=== PATIENT | female | born 1955 | race Caucasian/White ===

== ENCOUNTER 2018-04-05 11:16 | Observation (INO) ==
[2018-04-05] MEDS ORDERED: Ipratropium/Albuterol Neb 3 ML IH ONE (11:19)
[2018-04-05] MEDS ORDERED: predniSONE 20 MG TABLET PO ONE (11:20)
--- NOTE | 2018-04-05 11:27 | Emergency Department Note ---
Disposition Clinical Impression: Cardiac enzymes elevated COPD (chronic obstructive pulmonary disease) Qualifiers: COPD type: unspecified COPD Qualified Code(s): J44.9 - Chronic obstructive pulmonary disease, unspecified Disposition: Admitted As Inpatient Condition: Good Time of Disposition: 13:11 SOB HPI - General Stated Complaint: COPD SOB Time Seen by Provider: 04/05/18 11:19 Source: patient, EMS Mode of arrival: EMS Limitations: no limitations Nursing Notes Reviewed: Yes Vital Signs Reviewed: Yes - History of Present Illness 62-year-old was loading a table into car and developed some shortness of breath. Patient does have a history of asthma and COPD. Who is on squad arrival patient's pulse ox was in the 90-94 range. The patient's symptoms have improved significantly. Pt Subjective Complaint: shortness of breath, cough Onset (ago): Just [employer] Severity: moderate Consistency/Duration: constant, now resolved Improves with: nothing Worsens with: nothing Known history of: COPD, asthma Associated symptoms: Reports: denies other symptoms Treatment prior to arrival: oxygen Cough present: No - Related Data Home Medications Medication Instructions Recorded Confirmed Albuterol Sulfate [Proventil Hfa] 2 puff IH Q4H PRN 12/23/16 04/05/18 Citalopram Hydrobromide 40 mg PO DAILY 12/23/16 04/05/18 [Citalopram HBr] Lisinopril [Zestril] 40 mg PO DAILY 12/23/16 04/05/18 Budesonide/Formoterol 80/4.5 2 gm IH BIDR 02/11/17 04/05/18 [Symbicort 80/4.5] Albuterol Neb [Proventil Neb] 2.5 mg IH TID 04/05/18 04/05/18 Atorvastatin [Lipitor] 10 mg PO HS 04/05/18 04/05/18 Meloxicam [Mobic] 15 mg PO DAILY 04/05/18 04/05/18 Metoprolol [Lopressor] 25 mg PO BID 04/05/18 04/05/18 Allergies Allergy/AdvReac Type Severity Reaction Status Date / Time Oxycodone [From Percocet] AdvReac Nausea Verified 05/03/17 18:10 All systems ED: reviewed and negative except as stated. Constitutional: Denies: fever, chills, weakness, weight change Eyes: Denies: eye pain, eye discharge, vision change ENT ED: Denies: ear pain, throat pain, dental pain, hearing loss, epistaxis, congestion, dysphagia Cardiovascular: Denies: chest pain, palpitations, dyspnea on exertion, edema, syncope Respiratory: Reports: dyspnea, wheezes. Denies: cough, hemoptysis, stridor Gastrointestinal: Denies: abdominal pain, nausea, vomiting, diarrhea, constipation, hematemesis, melena, hematochezia Genitourinary: Denies: dysuria, frequency, hematuria, discharge Musculoskeletal: Denies: back pain, neck pain, arthralgia, myalgia Integumentary: Denies: rash, abrasion, lesions Neurological: Denies: headache, weakness, numbness, paresthesias, confusion, abnormal gait, vertigo Psychiatric: Denies: anxiety, depression, suicidal thoughts, homicidal thoughts , auditory hallucinations, visual hallucinations Endocrine: Denies: fatigue Hematological/Lymphatic: Denies: easy bleeding, easy bruising Allergic/Immunologic: Denies: facial swelling, urticaria Past Medical History - Past Medical History Medical history: Reports: COPD, hyperlipidemia, hypertension Surgical history: Reports: cataract, cholecystectomy, hysterectomy Psychiatric history: Reports: depression GRAIN SCOOPER history: Reports: no GRAIN SCOOPER history - Social History Smoking Status: Current every day smoker Smokeless Tobacco Status: No Alcohol use: Reports: none Drug use: Reports: none Physical Exam - General Limitations: no limitations General appearance: alert, in no apparent distress - Head Head exam: atraumatic, normocephalic, normal inspection - Eye Eye exam: Present: normal appearance, PERRL, EOMI - ENT ENT exam: normal exam, normal oropharynx, mucous membranes moist - Neck Neck exam: Present: normal inspection, full ROM, trachea midline - Chest Chest inspection: Present: normal inspection, symmetric chest wall rise - Respiratory Respiratory exam: Present: normal lung sounds bilaterally - Cardiovascular Cardiovascular exam: Present: regular rate, normal rhythm, normal heart sounds - Abdominal Exam Abdominal exam: Present: soft, Non-Tender. Absent: tenderness, distention, guarding, rebound, rigidity - Extremities Exam Extremities exam: Present: normal inspection, full ROM. Absent: tenderness, pedal edema - Expanded Lower Extremity Exam Neurovascular/Tendon exam: Absent: motor deficit, sensory deficit, tendon deficit Gait: observed and normal - Back Exam Back exam: Present: normal inspection, full ROM. Absent: tenderness - Neurological Exam Neurological exam: Present: alert, oriented X3 - Psychiatric Psychiatric exam: Present: normal affect, normal mood - Skin Skin exam: Present: warm, dry, intact, normal color Course - Reevaluation(s) Reevaluation #1: 62-year-old who developed dyspnea and some tightness in her chest wall loading a table. EKG showed no acute change but she did have positive cardiac enzymes. Consultation obtained with cardiology. Time: 13:12 - Consultations Consultation #1: Discussed with Dr. Diaz, admit. Time: 13:05 Consultation #2: Discussed with Dr. Lopez, would not start heparin now as the patient is asymptomatic. Would trend troponins. We will see in consult. Time: 13:10 Vital Signs Temperature 98.5 F 04/05/18 11:18 Pulse Rate 88 04/05/18 11:18 Respiratory Rate 19 04/05/18 11:18 Blood Pressure 142/89 04/05/18 11:18 O2 Sat by Pulse Oximetry 94 04/05/18 11:18 Temperature 97.8 F 04/05/18 17:40 Pulse Rate 73 04/05/18 17:40 Respiratory Rate 16 04/05/18 17:40 Blood Pressure 154/87 04/05/18 17:40 O2 Sat by Pulse Oximetry 94 04/05/18 17:40 Oxygen Delivery Oxygen Delivery Room Air Shortness of Breath/Dyspnea - Lab Data Lab results reviewed: Yes I reviewed the patient's lab results. Result diagrams: 04/05/18 11:31 04/05/18 11:31 Lab Results 04/05/18 04/05/18 04/05/18 Range/Units 11:31 11:31 11:31 WBC 7.2 (4.3-11.1) K/mcL RBC 4.64 (3.82-4.97) M/mcL Hgb 14.0 (11.5-15.4) g/dL Hct 41.3 (35.3-44.9) % MCV 89.0 (83.0-100.0) fL MCH 30.2 (28.0-33.3) pg MCHC 33.9 (31.6-35.5) g/dL RDW 12.8 (11.5-14.5) % Plt Count 220 (140-400) K/mcL MPV 11.6 (9.4-12.4) fL Immature Gran % 0.4 (0-4) % Seg Neutrophils % 63.5 % Lymphocytes % 24.9 % Monocytes % 8.9 % Eosinophils % 1.2 % Basophils % 1.1 % Neutrophils # 4.6 (1.6-8.9) K/mcL Lymphocytes # 1.8 (0.6-4.6) K/mcL Monocytes # 0.6 (0.0-1.3) K/mcL Eosinophils # 0.1 (0.0-0.6) K/mcL Basophils # 0.1 (0.0-0.2) K/mcL D-Dimer (0-500) ng/mLFEU Sodium 137 (136-145) mEq/L Potassium 3.7 (3.5-5.1) mEq/L Chloride 104 (98-107) mEq/L Carbon Dioxide 25 (23-29) mEq/L BUN 12 (8-23) mg/dL Creatinine 0.73 (0.60-1.20) mg/dL Est GFR ( Amer) > 60 (> 60) Est GFR (Non-Af Amer) > 60 (> 60) BUN/Creatinine Ratio 16 (6-26) Glucose 113 H (70-105) mg/dL Calculated Osmolality 285 (280-300) Lactic Acid 1.8 (0.5-2.2) mmol/L Calcium 8.6 (8.6-10.3) mg/dL Troponin I 0.07 H* (< 0.04) ng/mL B-Natriuretic Peptide (Less than 100) pg/mL 04/05/18 04/05/18 Range/Units 11:31 11:31 WBC (4.3-11.1) K/mcL RBC (3.82-4.97) M/mcL Hgb (11.5-15.4) g/dL Hct (35.3-44.9) % MCV (83.0-100.0) fL MCH (28.0-33.3) pg MCHC (31.6-35.5) g/dL RDW (11.5-14.5) % Plt Count (140-400) K/mcL MPV (9.4-12.4) fL Immature Gran % (0-4) % Seg Neutrophils % % Lymphocytes % % Monocytes % % Eosinophils % % Basophils % % Neutrophils # (1.6-8.9) K/mcL Lymphocytes # (0.6-4.6) K/mcL Monocytes # (0.0-1.3) K/mcL Eosinophils # (0.0-0.6) K/mcL Basophils # (0.0-0.2) K/mcL D-Dimer 535 H (0-500) ng/mLFEU Sodium (136-145) mEq/L Potassium (3.5-5.1) mEq/L Chloride (98-107) mEq/L Carbon Dioxide (23-29) mEq/L BUN (8-23) mg/dL Creatinine (0.60-1.20) mg/dL Est GFR ( Amer) (> 60) Est GFR (Non-Af Amer) (> 60) BUN/Creatinine Ratio (6-26) Glucose (70-105) mg/dL Calculated Osmolality (280-300) Lactic Acid (0.5-2.2) mmol/L Calcium (8.6-10.3) mg/dL Troponin I (< 0.04) ng/mL B-Natriuretic Peptide 150 H (Less than 100) pg/mL - Radiology Data Radiology results reviewed: Yes I reviewed the patient's radiology results. Chest X-Ray 04/05/18 11:19 IMPRESSION: Bibasilar atelectasis. D/ / Mg Ledbetter MD / Mg Ledbetter MD Interpreting Provider: Mg Ledbetter MD - EKG Data EKG attestation: Yes I reviewed and interpreted this EKG. EKG shows normal: Reports: sinus rhythm Rate: Reports: normal Rhythm: Reports: NSR [place]/QRS: Reports: normal Interpretation: Reports: no acute changes
[2018-04-05 11:49] LABS: Basophils # 0.1 K/mcL (0.0-0.2); Basophils % 1.1 %; Eosinophils # 0.1 K/mcL (0.0-0.6); Eosinophils % 1.2 %; Hematocrit 41.3 % (35.3-44.9); Immature Granulocytes % 0.4 % (0-4); Lymphocytes # 1.8 K/mcL (0.6-4.6); Lymphocytes % 24.9 %; Mean Corpuscular HGB Conc 33.9 g/dL (31.6-35.5); Mean Corpuscular Hemoglobin 30.2 pg (28.0-33.3); Mean Platelet Volume 11.6 fL (9.4-12.4); Monocytes # 0.6 K/mcL (0.0-1.3); Monocytes % 8.9 %; Neutrophils # 4.6 K/mcL (1.6-8.9); Platelet Count 220 K/mcL (140-400); Red Blood Count 4.64 M/mcL (3.82-4.97); Red Cell Distribution Width 12.8 % (11.5-14.5); Segmented Neutrophils % 63.5 %
[2018-04-05 12:11] LABS: BUN/Creatinine Ratio 16 (6-26); Blood Urea Nitrogen 12 mg/dL (8-23); Calcium 8.6 mg/dL (8.6-10.3); Carbon Dioxide 25 mEq/L (23-29); Chloride 104 mEq/L (98-107); Glucose 113 mg/dL (70-105); Osmolality,Calculated 285 (280-300); Potassium 3.7 mEq/L (3.5-5.1); Sodium 137 mEq/L (136-145); eGFR For African Americans > 60 (> 60); eGFR For Non-African Americans > 60 (> 60)
[2018-04-05 12:16] LABS: Troponin I 0.07 ng/mL (< 0.04)
--- NOTE | 2018-04-05 13:22 | Internal Med History&Physical ---
Date of Encounter: 04/05/18 Time of Encounter: 13:20 Internal Medicine - H&P: HPI Chief complaint: CHEST PAIN Admitted From: Emergency Dept Plans for Post Hospital Care: Home History of present illness: Ms. Nunes is a 62 year old female Patient with history of COPD, hypertension, high cholesterol, obesity and smoking history patient today was LAODING a table into a car she developed acute shortness of breath and broke out in profuse sweat has some epigastric discomfort going up to her chest and that she called EMS and brought to the emergency room . her symptoms has now resolve EKG is unremarkable troponin 0.07 patient will be admitted for further Evaluation ER has placed called to cardiology for consultation exam is unremarkable no prior cardiac event history. Past Med Surg Social Fam HX - Past Medical History Medical history: COPD, hyperlipidemia, hypertension Psychiatric history: depression - Past Surgical History Surgical History: cataract, cholecystectomy, hysterectomy Additional surgical history: bilat cataracts,colonoscopy,lasik - Social History Smoking Status: Current every day smoker Smokeless Tobacco Status: No Alcohol use: none Drug use: none Internal Medicine - H&P: Meds Albuterol Sulfate [Proventil Hfa] 2 puff IH Q4H PRN 12/23/16 [History] Citalopram Hydrobromide [Citalopram HBr] 40 mg PO DAILY 12/23/16 [History] Lisinopril [Zestril] 40 mg PO DAILY 12/23/16 [History] Budesonide/Formoterol 80/4.5 [Symbicort 80/4.5] 2 gm IH BIDR 02/11/17 [History] Albuterol Neb [Proventil Neb] 2.5 mg IH TID 04/05/18 [History] Atorvastatin [Lipitor] 10 mg PO HS 04/05/18 [History] Meloxicam [Mobic] 15 mg PO DAILY 04/05/18 [History] Metoprolol [Lopressor] 25 mg PO BID 04/05/18 [History] 3 Allergy/AdvReac Type Severity Reaction Status Date / Time Oxycodone [From Percocet] AdvReac Nausea Verified 05/03/17 18:10 All Systems PM: A 10-system review of systems was performed and is negative for pertinent findings except as documented above in the HPI. - Constitutional Constitutional: no chills, no fever(s), no night sweats - EENT Eyes: no change in vision, no discharge, no pain, no photophobia Ears: no ear discharge, no ear pain, no tinnitus Nose, mouth and throat: no dysphagia, no nasal discharge, no neck pain, no sore throat - Cardiovascular Cardiovascular ROS IM: chest pain, diaphoresis, dyspnea - Respiratory Respiratory: dyspnea, dyspnea on exertion - Gastrointestinal Gastrointestinal: no abdominal pain, no diarrhea, no hematemesis, no hematochezia, no melena, no nausea, no vomiting - Genitourinary Genitourinary: no change in urinary stream, no dysuria, no flank pain, no hematuria - Musculoskeletal Musculoskeletal ROS IM: no numbness, no tingling - Integumentary Integumentary IM: no rash, no unusual bruising - Neurological Neurological ROS: no confusion, no convulsions, no focal weakness, no numbness, no tingling, no tremor(s) - Constitutional Vitals: Temp Pulse Resp BP Pulse Ox 98.5 F 71 19 150/93 98 04/05/18 11:18 04/05/18 12:57 04/05/18 12:57 04/05/18 12:57 04/05/18 12:57 Internal Med - H&P Results - Labs CBC & Chem 7: 04/05/18 11:31 04/05/18 11:31 Labs: Short CBC 04/05/18 Range/Units 11:31 WBC 7.2 (4.3-11.1) K/mcL Hgb 14.0 (11.5-15.4) g/dL Hct 41.3 (35.3-44.9) % Plt Count 220 (140-400) K/mcL Neutrophils # 4.6 (1.6-8.9) K/mcL BMP 04/05/18 11:31 Sodium 137 Potassium 3.7 Chloride 104 Carbon Dioxide 25 BUN 12 Creatinine 0.73 Glucose 113 H Calcium 8.6 Cardiac Enzymes 04/05/18 Range/Units 11:31 Troponin I 0.07 H* (< 0.04) ng/mL - Impressions ITS Impressions Chest X-Ray 04/05/18 11:19 IMPRESSION: Bibasilar atelectasis. D/ / Mg Ledbetter MD / Mg Ledbetter MD Interpreting Provider: Mg Ledbetter MD - Assessment and plan (1) Chest pain Current Visit: Yes Status: Acute Assessment and plan: Acute chest pain with positive troponin 0.07 concern for possible non-STEMI will trend troponin and consult cardiology Qualifiers: Chest pain type: precordial pain Qualified Code(s): R07.2 - Precordial pain (2) HTN (hypertension) Current Visit: Yes Status: Chronic Assessment and plan: Chronic and well controlled Qualifiers: Hypertension type: essential hypertension Qualified Code(s): I10 - Essential (primary) hypertension (3) Obesity Current Visit: Yes Status: Chronic Qualifiers: Obesity type: due to excess calories Obesity classification: unspecified obesity classification Serious obesity comorbidity presence: unspecified whether serious comorbidity present Qualified Code(s): E66.09 - Other obesity due to excess calories (4) Hyperlipidemia Current Visit: Yes Status: Chronic Qualifiers: Hyperlipidemia type: pure hypercholesterolemia Qualified Code(s): E78.00 - Pure hypercholesterolemia, unspecified; E78.0 - Pure hypercholesterolemia (5) COPD (chronic obstructive pulmonary disease) Current Visit: Yes Status: Chronic Assessment and plan: Chronic no active wheezing on exam Qualifiers: COPD type: unspecified COPD Qualified Code(s): J44.9 - Chronic obstructive pulmonary disease, unspecified (6) Cardiac enzymes elevated Current Visit: Yes Status: Acute Assessment and plan: will trend - Time Spent With Patient Total time spent is greater than 50% in coordination of care (as documented) at patient's floor/unit and/or counseling patient:
[2018-04-05] MEDS ORDERED: Naloxone 0.4 MG/ML INJ IVP PRN (13:26)
[2018-04-05] MEDS ORDERED: Acetaminophen 325 MG TABLET PO PRN (13:26)
[2018-04-05] MEDS ORDERED: traMADol 50 MG TABLET PO PRN (13:26)
[2018-04-05] MEDS: Albuterol 2.5 MG/3 ML NEBULIZER IH SCH ×3 (14:52→22:43)
[2018-04-05] MEDS ORDERED: *HR* Heparin 5,000 UNIT/ML VIAL IVP PRN ×2 (19:14)
[2018-04-05] MEDS ORDERED: *HR* Heparin 5,000 UNIT/ML VIAL IVP ONE (19:14)
[2018-04-05] MEDS ORDERED: Heparin 25,000 UNIT/500 ML D5W 25,000 UNIT/500 ML BAG IVC SCH (19:15)
[2018-04-05 19:56] LABS: Prothrombin Time 10.9 Seconds (9.4-12.1)
[2018-04-05 19:58] LABS: Activated Partial Thrombo Time 30.4 Seconds (26.0-36.0)
[2018-04-05 20:04] LABS: Hematocrit 41.1 % (35.3-44.9); Hemoglobin 14.4 g/dL (11.5-15.4); Immature Platelets 9.8 % (1.1-6.1); Mean Corpuscular Volume 88.4 fL (83.0-100.0); Mean Platelet Volume 11.5 fL (9.4-12.4); Red Blood Count 4.65 M/mcL (3.82-4.97); Red Cell Distribution Width 12.7 % (11.5-14.5)
[2018-04-05] MEDS: 0.9 % Sodium Chloride 1,000 ML IVC SCH (20:33)
[2018-04-05] MEDS: Budesonide/Formoterol 80/4.5 MDI IH SCH (22:43)
[2018-04-06 02:39] LABS: Activated Partial Thrombo Time 166.1 Seconds (26.0-36.0)
[2018-04-06 02:55] LABS: Heparin anti-factor XA UFH 0.9 IU/mL (0.30-0.70)
[2018-04-06] MEDS: 0.9 % Sodium Chloride 1,000 ML IVC SCH ×2 (03:50→10:39)
[2018-04-06 06:05] LABS: Hematocrit 37.9 % (35.3-44.9); Mean Corpuscular HGB Conc 33.8 g/dL (31.6-35.5); Mean Corpuscular Hemoglobin 29.8 pg (28.0-33.3); Mean Corpuscular Volume 88.1 fL (83.0-100.0); Mean Platelet Volume 11.4 fL (9.4-12.4); Platelet Count 198 K/mcL (140-400)
[2018-04-06 06:09] LABS: Hemoglobin 12.8 g/dL (11.5-15.4)
[2018-04-06 06:22] LABS: Chol/HDL Ratio 3.3 (0-4.9)
[2018-04-06] MEDS ORDERED: Albuterol 2.5 MG/3 ML NEBULIZER IH PRN (07:15)
[2018-04-06] MEDS: Budesonide/Formoterol 80/4.5 MDI IH SCH ×2 (07:41→22:02)
--- NOTE | 2018-04-06 08:33 | Cardiology Consult Note ---
Date of Encounter: 04/06/18 Time of Encounter: 08:00 Assessment and Plan (1) NSTEMI (non-ST elevated myocardial infarction) Current Visit: Yes Status: Acute Reports ongoing symptoms for the past several months. Peak troponin 0.64. Nonspecific ST/T wave changes on ECG. Chest pain free upon exam. Risk factors for CAD include: tobacco abuse, HTN, HLD, obesity. On heparin gtt, asa, statin, and BB. Will optimize statin dose. Check echocardiogram. Cardiac rehab. Recommend LHC with possible PCI; alternatives, risks, and benefits discussed, she is agreeable to proceed. Will further discuss with Dr. Lopez. Will continue to follow. (2) HTN (hypertension) Current Visit: Yes Status: Chronic Remains elevated overnight. Consider addition of ACEi s/p LHC. Qualifiers: Hypertension type: essential hypertension Qualified Code(s): I10 - Essential (primary) hypertension (3) Tobacco abuse Current Visit: Yes Status: Acute Smoking cessation counseling provided. (4) Hyperlipidemia Current Visit: Yes Status: Chronic Increase statin. Risk factor modification. Qualifiers: Hyperlipidemia type: pure hypercholesterolemia Qualified Code(s): E78.00 - Pure hypercholesterolemia, unspecified; E78.0 - Pure hypercholesterolemia Discussion w patient/family: The assessment and plan as outlined above was discussed with the patient and/or family members who expressed understanding and agreement. All questions were answered. Thank you for involving us in the care of your patient. Please call with any questions. The patient will be discussed and reviewed with Dr. Lopez; changes to be made accordingly. History of Present Illness Consult date: 04/06/18 Requesting physician: Jesu Diaz Consult reason: NSTEMI Chief complaint: Chest discomfort History of present illness: Ms. Nunes is a 62 year old female with PMHx significant for HTN, HLD, COPD, and tobacco abuse who presented to the ED after an episode of epigastric discomfort that started yesterday afternoon while moving light furniture. Associated symptoms include diaphoresis, shortness of breath, and significant weakness. Patient reports episode lasted several minutes. Patient reports similar episodes that have occurred frequently over the past several weeks to months. Patient also reports weakness and fatigue for "years." Upon arrival to ED, initial troponin was 0.07. Non-specific ST/T wave changes on ECG. She is pain free upon exam. No prior CV testing or work-up reported. Past Med Surg Social Fam HX - Past Medical History Attestation: Yes The following information was validated with the patient. Source: patient Medical history: COPD, hyperlipidemia, hypertension Psychiatric history: depression - Past Surgical History Surgical History: cataract, cholecystectomy, hysterectomy Additional surgical history: bilat cataracts,colonoscopy,lasik - Social History Smoking Status: Current every day smoker Packs per day: 1 Smokeless Tobacco Status: No Alcohol use: none Drug use: none - Family History Mother History Unknown: Yes Medications and Allergies Albuterol Sulfate [Proventil Hfa] 2 puff IH Q4H PRN 12/23/16 [History] Citalopram Hydrobromide [Citalopram HBr] 40 mg PO DAILY 12/23/16 [History] Lisinopril [Zestril] 40 mg PO DAILY 12/23/16 [History] Budesonide/Formoterol 80/4.5 [Symbicort 80/4.5] 2 gm IH BIDR 02/11/17 [History] Albuterol Neb [Proventil Neb] 2.5 mg IH TID 04/05/18 [History] Atorvastatin [Lipitor] 10 mg PO HS 04/05/18 [History] Meloxicam [Mobic] 15 mg PO DAILY 04/05/18 [History] Metoprolol [Lopressor] 25 mg PO BID 04/05/18 [History] 3 Allergy/AdvReac Type Severity Reaction Status Date / Time Oxycodone [From Percocet] AdvReac Nausea Verified 05/03/17 18:10 All Systems Review: The remainder of the systems were reviewed and are negative - Cardiovascular Cardiovascular: as per HPI Physical Examination Vital Signs, Last 4 Hours Temp Pulse Resp BP Pulse Ox 04/06/18 07:42 17 98 04/06/18 06:39 98.0 F 68 12 160/80 97 04/06/18 04:57 98 F 63 16 159/81 95 General: Conversant, No Apparent Distress HEENT: Atraumatic, Normocephaly, Mucus Membranes Moist Cardiac: Reg Rate and Rhythm, Normal S1 and S2 Lungs: Normal Breath Sounds Neuro: Alert and responsive Abdomen: Soft Skin: No rashes noted on visualized skin Musculoskeletal: No Chest Wall Tenderness Extremities: No Edema, Normal Pulses Results 04/06/18 05:31 06/05/18 11:31 Lab Results 04/05/18 04/05/18 04/05/18 17:16 19:34 19:34 WBC 9.1 Hgb 14.4 Hct 41.1 Plt Count 237 INR 1.0 APTT 30.4 Magnesium Troponin I 0.64 H* B-Natriuretic Peptide 04/06/18 04/06/18 04/06/18 00:24 01:51 05:31 WBC Hgb Hct Plt Count INR APTT 166.1 H* D Magnesium Troponin I 0.31 H* 0.18 H* B-Natriuretic Peptide 04/06/18 04/06/18 04/06/18 05:31 05:31 05:31 WBC 9.7 Hgb 12.8 D Hct 37.9 Plt Count 198 INR APTT Magnesium 2.0 Troponin I B-Natriuretic Peptide 389 H Active Medications Acetaminophen (Tylenol) 650 mg PO Q6HR PRN PRN Reason: Mild Pain/Fever Stop: 10/05/18 13:27 Albuterol Sulfate (Proventil Neb) 2.5 mg IH Q2H PRN; Protocol PRN Reason: Shortness Of Breath/Wheezing Stop: 10/06/18 07:16 Atorvastatin Calcium (Lipitor) 10 mg PO HS [facility] Stop: 10/05/18 21:01 Last Admin: 04/05/18 20:15 Dose: 10 mg Budesonide/Formoterol Fumarate (Symbicort) 2 puff IH BIDR MARTY PRN Reason: Protocol Stop: 10/05/18 22:01 Last Admin: 04/06/18 07:41 Dose: 2 puff Citalopram Hydrobromide (Celexa) 40 mg PO DAILY [facility] Stop: 10/06/18 09:01 Heparin Sodium (Porcine) (Heparin) 6,900 unit 70 unit/kg (6900 unit) IVP Q6HR PRN PRN Reason: SEE COMMENTS Stop: 10/05/18 19:15 Heparin Sodium (Porcine) (Heparin) 3,500 unit 35 unit/kg (3500 unit) IVP Q6H PRN PRN Reason: SEE COMMENTS Stop: 10/05/18 19:15 Sodium Chloride (0.9 % Sodium Chloride) 1,000 mls @ 75 mls/hr IVC .[id number] [facility] Stop: 04/06/18 16:09 Last Admin: 04/06/18 03:50 Dose: Not Given Heparin Sodium/Dextrose (Heparin 25,000 Unit/500 Ml D5w) 25,000 unit in 500 mls @ 27.624 mls/hr IVC .Q18H7M MARTY; 14 UNIT/KG/HR PRN Reason: Protocol Stop: 10/05/18 19:16 Last Titration: 04/06/18 03:40 Dose: 10.94 unit/kg/hr, 21.6 mls/hr Lisinopril (Zestril) 40 mg PO DAILY MARTY Stop: 10/06/18 09:01 Metoprolol Tartrate (Lopressor) 50 mg PO BID MARTY Stop: 10/05/18 21:01 Last Admin: 04/05/18 20:16 Dose: 50 mg Naloxone HCl (Narcan) 0.4 mg IVP Q2MIN PRN PRN Reason: SEE COMMENTS Stop: 10/05/18 13:27 Tramadol HCl (Ultram) 50 mg PO Q6HR PRN PRN Reason: Moderate Pain Stop: 10/05/18 13:27 - Imaging and Cardiology Echo: pending Other Results: 12 hour tele: avg HR-70 SR. No signficant event noted. - EKG Interpretation EKG results cardiology: personally reviewed Consult Discharge Plan - Plan Referrals: Lety Chacon MD [Primary Care Provider] -
[2018-04-06] MEDS: Lisinopril 20 MG TABLET PO SCH (09:25)
--- NOTE | 2018-04-06 10:26 | Pre-Sedation Evaluation ---
Pre-sedation evaluation - Pre-sedation checklist Date of procedure: 04/06/18 Procedure: [facility] Recent Vitals: Last Vital Signs Temp 98.0 F 04/06/18 06:39 Pulse 68 04/06/18 06:39 Resp 17 04/06/18 07:42 BP 160/80 04/06/18 06:39 Pulse Ox 98 04/06/18 07:42 H&P (including ROS) documented in medical record: Yes Previous reaction to sedatives/anesthetics: No Dietary Status: NPO after Midnight Airway Assessment: Patient can open mouth completely, TMJ function normal ASA Classification *see protocol: CLASS II-Mild systemic disease Plan of Care: Pt appropriate candidate for procedure/moderate/conscious sedation , Risks/benefits of procedure/sedation discussed w/ patient/family
[2018-04-06] MEDS: Aspirin 81 MG TAB.CHEW PO SCH (10:34)
--- NOTE | 2018-04-06 10:50 | Electrocardiograph Report ---
[place] [id number] Test Date: 2018-04-05 Pat Name: Pedro Nunes Department: 104 Room: [facility] Gender: F Broadcast Checker: EDGAR : 1955 Requested By: Viktor Velasquez Order Number: [id number] Reading MD: Ricky Gann Measurements Intervals [place] Rate: 82 P: 66 MS: 158 QRS: 54 QRSD: 82 T: 65 QT: 413 QTc: 452 Interpretive Statements SINUS RHYTHM WITH OCCASIONAL SUPRAVENTRICULAR PREMATURE COMPLEXES LEFT ATRIAL ENLARGEMENT BASELINE ARTIFACT Electronically Signed On 04-06-2018 10:49:17 EDT by Ricky Gann
[2018-04-06] MEDS ORDERED: ISOVUE-370 200 ML INFUS..BTL IV ONE (11:54)
[2018-04-06] MEDS ORDERED: Heparin 1,000 UNITS/500 mL 500 ML ONE (11:54)
[2018-04-06] MEDS ORDERED: *HR* Heparin 10,000 UNIT/10 ML VIAL ONE (11:54)
[2018-04-06] MEDS ORDERED: 0.9 % Sodium Chloride 1,000 ML ONE (11:54)
[2018-04-06] MEDS ORDERED: Nitroglycerin 1,000 MCG/10 ML VIAL IV ONE (11:54)
[2018-04-06] MEDS ORDERED: Verapamil 5 MG/2 ML VIAL ONE (11:54)
[2018-04-06] MEDS ORDERED: *HR* FentaNYL (PF) 100 MCG/2 ML VIAL ONE (13:01)
[2018-04-06] MEDS ORDERED: *HR* Midazolam HCl 2 MG/2 ML VIAL ONE (13:02)
--- NOTE | 2018-04-06 13:30 | Internal Med Progress Note ---
Date of Encounter: 04/06/18 Time of Encounter: 13:30 - Assessment and plan (1) NSTEMI (non-ST elevated myocardial infarction) Current Visit: Yes Status: Acute Assessment and plan: On ACS protocol with heparin drip. For cardiac cath this am. Cardiology following (2) Chest pain Current Visit: Yes Status: Acute Assessment and plan: See #1 Qualifiers: Chest pain type: other chest pain Qualified Code(s): R07.89 - Other chest pain; R07.8 - Other chest pain (3) Tobacco abuse Current Visit: Yes Status: Acute Assessment and plan: Counseled to quit (4) COPD (chronic obstructive pulmonary disease) Current Visit: Yes Status: Chronic Assessment and plan: Nebs PRN. No acute exacerbation Qualifiers: COPD type: unspecified COPD Qualified Code(s): J44.9 - Chronic obstructive pulmonary disease, unspecified (5) HTN (hypertension) Current Visit: Yes Status: Chronic Assessment and plan: Continue lisinopril and metoprolol Qualifiers: Hypertension type: essential hypertension Qualified Code(s): I10 - Essential (primary) hypertension (6) Hyperlipidemia Current Visit: Yes Status: Chronic Assessment and plan: Continue atorvastatin Qualifiers: Hyperlipidemia type: pure hypercholesterolemia Qualified Code(s): E78.00 - Pure hypercholesterolemia, unspecified; E78.0 - Pure hypercholesterolemia (7) DVT prophylaxis Current Visit: Yes Status: Acute Assessment and plan: On full anticoagulation - Time Spent With Patient Total time spent is greater than 50% in coordination of care (as documented) at patient's floor/unit and/or counseling patient: - Subjective Interval history: No acute events overnight - Constitutional Vitals: Temp Pulse Resp BP Pulse Ox 98.1 F 57 15 152/87 97 04/06/18 10:52 04/06/18 10:52 04/06/18 10:52 04/06/18 10:52 04/06/18 10:52 - Head Head exam: Present: atraumatic, normocephalic - Eye Eye exam: Present: PERRL, conjuntiva pink, sclera anicteric Pupils: Present: PERRL - Neck Neck exam general surgery: Present: supple, trachea midline. Absent: lymphadenopathy - Respiratory Respiratory exam: Present: CTAB. Absent: accessory muscle use, rales, rhonchi, wheezes - Cardiovascular Cardiovascular exam: Present: RRR, +S1, +S2. Absent: diastolic murmur, gallop, rubs, systolic murmur - GI/Abdominal GI/Abdominal exam: Present: normal bowel sounds, soft, no peritoneal signs. Absent: distended, tenderness - Extremities Exam Extremities exam: Present: warm, radial pulses palpable and symmetrical. Absent : calf tenderness, cyanotic, pedal edema - Neurological Exam Neurological exam: Present: CN II-XII intact, oriented X3, no focal deficits. Absent: pronater drift, facial droop, speech deficit - Skin Skin exam: Present: dry, intact Internal Medicine: Result - Labs CBC & Chem 7: 04/06/18 05:31 04/05/18 11:31 Labs: Short CBC 04/05/18 04/06/18 Range/Units 19:34 05:31 WBC 9.1 9.7 (4.3-11.1) K/mcL Hgb 14.4 12.8 D (11.5-15.4) g/dL Hct 41.1 37.9 (35.3-44.9) % Plt Count 237 198 (140-400) K/mcL Cardiac Enzymes 04/05/18 04/06/18 04/06/18 Range/Units 17:16 00:24 05:31 Troponin I 0.64 H* 0.31 H* 0.18 H* (< 0.04) ng/mL - ABG Interpretation ABG results: PT/INR, D-dimer PT 10.9 Seconds (9.4-12.1) 04/05/18 19:34 D-Dimer 535 ng/mLFEU (0-500) H 04/05/18 11:31 Consult Discharge Plan - Plan Referrals: Lety Chacon MD [Primary Care Provider] -
--- NOTE | 2018-04-06 14:03 | Invasive Diagnostic Lab Proc ---
Name: Pedro Nunes Date of Study: 04/06/2018 Date: 1955 Ht: 65.0in Medical Record#: [id number] Age: 62 Wt: 216.05lb Gender: Female BSA: 2.04 Order #: [id number] BMI: 36 Physicians Procedure Physician: Ricky Gann MD, [facility] Referring MD: Referring MD: Staff Name Position Time In Fiona Sosa RT (R) Monitor 01:20 PM RuthyRima boyd RT (R) Scrub 01:20 PM Jessica Mckeon RN [employer] Cooler Operator 01:20 PM Indications Indication Non-Stemi Procedures Performed Procedure L HRT ARTERY/VENTRICLE ANGIO Pre-Procedure Checklist Informed consent is complete signed and on chart. H&P is on chart. ID band is on and ID verified with patient. Patient NPO for procedure The procedure was described for the patient and questions were answered. Blood Pressure: 175/83 ECG is on chart. Rhythm: NSR Plan of Care Patient will tolerate the procedure without complications. Adequate level of comfort will be maintained. Hemodynamics will remain stable Patient will recover from procedure without complications. Respiratory function will be maintained. Cardiac rhythm will remain stable. Patient temperature will be maintained. Patient and/or family have verbalized understanding of the procedure. Patient Education Chief Complaint/Reason for Test: Cardiac Cath Developmental Category: Geriatric (65+ years) Developmentally Appropriate for Age: Yes Learning Barriers: None Education Needs: Procedure Education Method: Verbal Information Taught: Cardiac Cath Educational Evaluation: Able to repeat information Intravenous Access Time IV Size Location DC'd Fluid/Drip Rate Units RN 01:17 PM Started with 22g 1 " Lt Arm 0.9NaCl 25 ml/hr Jessica Mckeon RN Allergies NKDA Vital Signs Time BP (mmHg) HR (bpm) O2 Sat. RR (bpm) LOC 01:21 PM / % 5 = Fully awake and oriented or at pre-proc level 01:21 PM / % 4 = Oriented but drowsy 01:38 PM / % 4 = Oriented but drowsy 01:28 PM 175 / 83 59 95 % 01:31 PM 162 / 77 59 95 % 01:37 PM 156 / 63 55 93 % 01:41 PM 159 / 69 61 94 % 01:46 PM 157 / 85 % Procedural Medications Time Medication Dose Units Method Given By 01:20 PM Oxygen 2 L/min nasal cannula Jessica Mckeon RN 01:26 PM Versed 2 mg Intravenous Jessica Mckeon RN 01:26 PM Fentanyl 50 mcg Intravenous Jessica Mckeon RN 01:31 PM Lidocaine 2% 0.5 ml Subcutaneous Ricky Gann MD, [facility] 01:33 PM Heparin 2000 units Nitroglycerin 200 mcg Verapamil 2.5 mg Intraarterial Ricky Gann MD, [facility] ASA Classification: CLASS II- Mild systemic disease (i.e. well-controlled diabetes, hypertension, asthma, cigarette smoking) Miryam Score Preprocedure Postprocedure Activity 2- Moves 4 extremities sustained head lift Activity 2- Moves 4 extremities sustained head lift Circulation 2- SBP +/= 20 points of pre-anesthetic level Circulation 2- SBP +/= 20 points of pre-anesthetic level Consciousness 2- Awake and alert oriented x 3 Consciousness 2- Awake and alert oriented x 3 O2 Saturation 2- Able to maintain O2 satruation of 92% on room air O2 Saturation 2- Able to maintain O2 satruation of 92% on room air Respiratory 2- Able to deep breathe and cough well Respiratory 2- Able to deep breathe and cough well Total Score 10 Total Score 10 Contrast Agent: Isovue Diagnostic Contrast: 38 ml Total Contrast: 38 ml Fluoro Dose: 141 mGy Procedure Log Time Note Enter By 01:16 PM CathStat 01:16 PM Vitals capture started with the following parameters, Patient=Adult, Interval=5 min, Initial Zmbotnop=527 mmHg, Deflation Rate=3 mmHg, Cuff placed on Right Arm 01:16 PM Recorded ECG: HR=61 Condition=Condition 1 01:20 PM Pt arrived to labeling strategist 1 at 13:20 :20 PM Physician arrived :: PM Meet and greet completed : PM Sign in performed according to hospital policy. :20 PM Procedure start 13:20 :20 PM Patient charges- Angio tray pack, Navilyst 3mm J, Pulse Oximetry and ACIST tubing and transducer :20 PM IV Supplies used: J loop Angio Cath. :20 PM Fiona Sosa RT (R) Position: Monitor Time in: 13:20 :20 PM Rima Bliss RT (R) Position: Scrub Time in: 13:20 :20 PM Jessica Mckeon RN Position: [employer] Cooler Operator Time in: 13:20 twilson : PM Starting a new IV. IV in right wrist D/C. ilson PM Time: : Oxygen on at 2 L/min per nasal cannula by Jessica Mckeon RN twilson : PM Time: 13:21 Patient comfortable and pain free: Yes twilson : PM Time: 13:LOC: 5 = Fully awake and oriented or at pre-proc level twilson : PM Vitals capture started with the following parameters, Patient=Adult, Interval=5 min, Initial Rimefgfm=003 mmHg, Deflation Rate=3 mmHg, Cuff placed on Right Arm PM Time: : Versed 2 mg Intravenous Given by Jessica Mckeon RN twilson PM Time: : Fentanyl 50 mcg Intravenous Given by Jessica Mckeon RN twilson : PM ASA Class CLASS II- Mild systemic disease (i.e. well-controlled diabetes, hypertension, asthma, cigarette smoking) twilson : PM HR=59 bpm, SFPD=135/83 mmhg, SpO2=95.0 % : PM Hair removed from procedure site in procedure lab using clippers. Right wrist prepped with Chloraprep by Rima Bliss (R), then patient was draped. Skin intact. twilson : PM Hair removed from procedure site in procedure lab using clippers. Right groin prepped with Chloraprep by Rima Bliss (R), then patient was draped. Skin intact. twilson : PM Time out performed according to hospital policy twilson : PM HR=59 bpm, NLTW=310/77 mmhg, SpO2=95.0 % : PM Time: 13: 0.5 ml Lidocaine 2% to right radial Subcutaneous Given by Ricky Gann MD, FACC twilson : PM Pressure channel 1 zeroed. : PM Access obtained by percutaneous puncture. 6Fr 10cm Terumo Glidesheath sheath placed in right Radial artery. [id number] twilson PM Time: 13:33 Patient given 2,000 units Heparin, 200 mcg Nitroglycerin, and 2.5 mg Verapamil Intraarterial by Ricky Gann MD, FACC. This is given to reduce risk of vessel spasm and thrombosis. twilson 01:34 PM 5Fr TIG catheter inserted over the wire DN twilson 01:34 PM Wire removed twilson 01:34 PM 0.035 150cm VSI Moses-Torque wire [id number] twilson 01:35 PM Wire removed, intact. twilson 01:36 PM Time: 13:21 Patient comfortable and pain free: Yes twilson 01:36 PM Time: 13:21LOC: 4 = Oriented but drowsy twilson 01:36 PM Recorded Pressure: Ao, HR=59, Condition=Condition 1 (Aorta) Ao 121/81/101 01:36 PM LCA angiography performed in multiple views. twilson 01:37 PM Recorded Pressure: Ao, HR=59, Condition=Condition 1 (Aorta) Ao 126/83/104 01:37 PM HR=55 bpm, DDJP=867/63 mmhg, SpO2=93.0 % 01:37 PM RCA angiography performed in multiple views. twilson 01:37 PM Recorded Pressure: Ao, HR=62, Condition=Condition 1 (Aorta) Ao 120/87/102 01:38 PM Time: 13:38 Patient comfortable and pain free: Yes twilson :38 PM Time: 13:38LOC: 4 = Oriented but drowsy twilson 01:38 PM Coronary Dominance: right twilson 01:38 PM Lesion found in Proximal RCA. Pre Stenosis: 20 Pre AIMEE Flow: twilson 01:38 PM Right Coronary, Right Posterior Descending Arteries with Right Posterolateral and Acute Marginal branches with 20 % stenosis. If graft is supplying this area, 0 % stenosis twilson 01:38 PM Wire reinserted. twilson 01:38 PM Catheter removed twilson 01:38 PM 5Fr Pigtail catheter inserted over the wire [facility] twilson 01:39 PM Catheter selectively placed in left ventricle twilson 01:39 PM Wire removed twilson 01:40 PM Bolus angiogram of left Ventricle complete: 10 ml/sec for a total of 30 mls twilson 01:40 PM Recorded Pressure: LV, HR=62, Condition=Condition 1 (Left Ventricle) LV 129/11/21 01:40 PM Recorded Pressure: LV, Ao, HR=78, Condition=Condition 1 (Left Ventricle) LV 135/20/25, (Aorta) Ao 134/68/99 01:41 PM Wire reinserted. twilson 01:41 PM Catheter removed twilson 01:41 PM Wire removed twilson 01:41 PM HR=61 bpm, FWGQ=258/69 mmhg, SpO2=94.0 % 01:41 PM Procedure completed at 13:41 twilson 01:41 PM Did you address AIMEE flow and Dominance? Yes twilson 01:42 PM Sign out completed: Radiation Dose 141.33 mGy Fluoro Time: 1.6 Isovue 370 - 200ml contrast 38 ml given by Ricky Gann MD, [facility]. Complications: NoneCardiac Rehab Consult needed: NoConfirmed administered medications: Yes twilson 01:42 PM Isovue 370 - 200ml,1 Bottle(s) used. twilson 01:42 PM Arterial sheath pulled, Vasc Band closure device used and was Successful S/N. twilson 01:42 PM 18 ml air in Vasc Band. twilson 01:43 PM Estimated Blood Loss: minimal twilson 01:43 PM Post ECG NSR twilson 01:43 PM Post Blood Pressure 159/69 twilson 01:43 PM 13:43 Post Pulses Bilateral radial 2+ twilson 01:43 PM Information taught Cardiac Cath and Vasc Band twilson 01:43 PM Education needs Procedure, Plan of Care, and Responsibilities of Patient in Care twilson 01:43 PM Learning barriers :None twilson 01:43 PM Education Methods Verbal twilson 01:43 PM Education evaluation Able to repeat information twilson 01:43 PM Site status No bleeding/hematoma - Rt Wrist as reported by Rima Bliss RT (R) at 13:43 twilson 01:44 PM No family present at this time. twilson 01:46 PM OJYH=267/85 mmhg 01:50 PM Report given to Erica RICHARDSON Pt taken to 2A Room #71. 13:50 twilson 01:53 PM Patient out of room: 13:53 twilson Complications Complication None Hemodynamics Pressures Site Systolic/A Wave Diastolic/V Wave Mean AO 121 81 101 AO 126 83 104 AO 120 87 102 LV 129 11 21 LV 135 20 25 AO 134 68 99 Post Procedure Information Blood Pressure: 159/69 mmHg Rhythm: NSR Post procedural instructions were given Closure Device Time Device Success/Fail 04/06/2018 1:44:00 PM Mechanical Compression Successful Site Checks Time Location Status Staff Sheath In? Note 01:43 PM Rt Wrist No bleeding/hematoma Rima Bliss RT (R) Pulses Time Site Pre-Procedure Post-Procedure Note 04/06/2018 1:17:00 PM Bilateral radial 2+ 1:43:00 PM Bilateral radial 2+ Updated by RT Trey GilbertR) on 04/06/2018 1:54:35 PM electronically signed on 04/06/2018 1:55:26 PM with status of Final
[2018-04-07 06:41] LABS: Basophils # 0.1 K/mcL (0.0-0.2); Basophils % 0.7 %; Eosinophils # 0.1 K/mcL (0.0-0.6); Eosinophils % 1.3 %; Hematocrit 38.7 % (35.3-44.9); Hemoglobin 12.6 g/dL (11.5-15.4); Immature Granulocytes % 0.3 % (0-4); Lymphocytes # 2.5 K/mcL (0.6-4.6); Lymphocytes % 34.2 %; Mean Corpuscular HGB Conc 32.6 g/dL (31.6-35.5); Mean Corpuscular Hemoglobin 29.6 pg (28.0-33.3); Mean Corpuscular Volume 90.8 fL (83.0-100.0); Monocytes # 0.7 K/mcL (0.0-1.3); Monocytes % 10.2 %; Neutrophils # 3.8 K/mcL (1.6-8.9); Platelet Count 177 K/mcL (140-400); Red Blood Count 4.26 M/mcL (3.82-4.97); Red Cell Distribution Width 12.9 % (11.5-14.5); Segmented Neutrophils % 53.3 %
[2018-04-07 07:03] LABS: BUN/Creatinine Ratio 19 (6-26); Blood Urea Nitrogen 12 mg/dL (8-23); Calcium 8.1 mg/dL (8.6-10.3); Carbon Dioxide 26 mEq/L (23-29); Chloride 108 mEq/L (98-107); Glucose 99 mg/dL (70-105); Osmolality,Calculated 294 (280-300); Potassium 3.7 mEq/L (3.5-5.1); Sodium 142 mEq/L (136-145); eGFR For African Americans > 60 (> 60); eGFR For Non-African Americans > 60 (> 60)
[2018-04-07] MEDS: Budesonide/Formoterol 80/4.5 MDI IH SCH (07:31)
[2018-04-07] MEDS: Aspirin 81 MG TAB.CHEW PO SCH (08:33)
[2018-04-07] MEDS: Lisinopril 20 MG TABLET PO SCH (08:33)
[2018-04-07 08:55] VITALS: BP 171/81
--- NOTE | 2018-04-07 10:35 | Cardiology Progress Note ---
Date of Encounter: 04/07/18 Time of Encounter: 10:30 Assessment and Plan (1) NSTEMI (non-ST elevated myocardial infarction) Current Visit: Yes Status: Acute Reports ongoing symptoms for the past several months. Peak troponin 0.64. Nonspecific ST/T wave changes on ECG. Risk factors for CAD include: tobacco abuse, HTN, HLD, obesity. [facility] 04/06/18: mild-moderate non-obstructive CAD; medical therapy recommended. EF 55% TTE: pending. Recommend asa, statin, and BB upon discharge. Discussed with Dr. Gann, recommend plavix 1m-1y as tolerated d/t NSTEMI. Cardiac rehab consulted. Will coordinate outpatient follow-up. If no significant abnormalities on TTE, Cardiology will sign-off. (2) HTN (hypertension) Current Visit: Yes Status: Chronic Remains elevated overnight. ACEi added. Qualifiers: Hypertension type: essential hypertension Qualified Code(s): I10 - Essential (primary) hypertension (3) Tobacco abuse Current Visit: Yes Status: Acute Smoking cessation counseling provided. (4) Hyperlipidemia Current Visit: Yes Status: Chronic Increase statin. Risk factor modification. Qualifiers: Hyperlipidemia type: pure hypercholesterolemia Qualified Code(s): E78.00 - Pure hypercholesterolemia, unspecified; E78.0 - Pure hypercholesterolemia Discussion w patient/family: The assessment and plan as outlined above was discussed with the patient and/or family members who expressed understanding and agreement. All questions were answered. Thank you for involving us in the care of your patient. Please call with any questions. The patient will be discussed and reviewed with Dr. Gann; changes to be made accordingly. Subjective Principal diagnosis: NSTEMI Interval history: Seen and examined. No chest pain or recurrent symptoms reported overnight. No issues with right radial cath site. Objective Vital Signs, Last 4 Hours Temp Pulse Resp BP Pulse Ox 04/07/18 08:53 97.6 F 71 16 171/81 93 04/07/18 07:31 16 93 General: Conversant HEENT: Atraumatic, Normocephaly, Mucus Membranes Moist Cardiac: Reg Rate and Rhythm, Normal S1 and S2 Lungs: Normal Breath Sounds Neuro: Alert and responsive Abdomen: Soft Skin: No rashes noted on visualized skin Musculoskeletal: No Chest Wall Tenderness Extremities: Normal Pulses Other: right radial cath site: +2 radial pulses, no hematoma, bruising, or ecchymosis noted. Brisk cap refill. Results 04/07/18 06:02 04/07/18 06:02 Lab Results 04/06/18 04/07/18 04/07/18 09:55 06:02 06:02 WBC 7.2 Hgb 12.6 Hct 38.7 Plt Count 177 APTT 73.2 H D Sodium 142 Potassium 3.7 Chloride 108 H Carbon Dioxide 26 BUN 12 Creatinine 0.64 Glucose 99 Calcium 8.1 L Active Medications Acetaminophen (Tylenol) 650 mg PO Q6HR PRN PRN Reason: Mild Pain/Fever Stop: 10/05/18 13:27 Albuterol Sulfate (Proventil Neb) 2.5 mg IH Q2H PRN; Protocol PRN Reason: Shortness Of Breath/Wheezing Stop: 10/06/18 07:16 Last Admin: 04/06/18 14:07 Dose: 2.5 mg Aspirin (Aspirin) 81 mg PO DAILY [facility] Stop: 10/06/18 09:01 Last Admin: 04/07/18 08:33 Dose: 81 mg Atorvastatin Calcium (Lipitor) 40 mg PO HS MARTY Stop: 10/06/18 21:01 Last Admin: 04/06/18 20:43 Dose: 40 mg Budesonide/Formoterol Fumarate (Symbicort) 2 puff IH BIDR MARTY PRN Reason: Protocol Stop: 10/05/18 22:01 Last Admin: 04/07/18 07:31 Dose: 2 puff Citalopram Hydrobromide (Celexa) 40 mg PO DAILY MARTY Stop: 10/06/18 09:01 Last Admin: 04/07/18 08:33 Dose: 40 mg Clopidogrel Bisulfate (Plavix) 75 mg PO DAILY [facility] Stop: 10/07/18 10:46 Lisinopril (Zestril) 40 mg PO DAILY MARTY Stop: 10/06/18 09:01 Last Admin: 04/07/18 08:33 Dose: 40 mg Metoprolol Tartrate (Lopressor) 50 mg PO BID MARTY Stop: 10/05/18 21:01 Last Admin: 04/07/18 08:33 Dose: 50 mg Naloxone HCl (Narcan) 0.4 mg IVP Q2MIN PRN PRN Reason: SEE COMMENTS Stop: 10/05/18 13:27 Tramadol HCl (Ultram) 50 mg PO Q6HR PRN PRN Reason: Moderate Pain Stop: 10/05/18 13:27 - Imaging and Cardiology Echo: pending Cardiac cath: report reviewed - EKG Interpretation EKG results cardiology: personally reviewed Consult Discharge Plan - Plan Referrals: Lety Chacon MD [Primary Care Provider] -
--- NOTE | 2018-04-07 12:41 | Discharge Summary ---
Orders not resulted at time of discharge: Pending orders 04/08/18 04:00 Basic Metabolic Panel AM 0400 CBC [Complete Blood Count] [HEME] AM 0400 04/09/18 04:00 Basic Metabolic Panel AM 0400 CBC [Complete Blood Count] [HEME] AM 0400 04/10/18 04:00 Basic Metabolic Panel AM 0400 CBC [Complete Blood Count] [HEME] AM 0400 04/11/18 04:00 Basic Metabolic Panel AM 0400 CBC [Complete Blood Count] [HEME] AM 0400 04/12/18 04:00 Basic Metabolic Panel AM 0400 CBC [Complete Blood Count] [HEME] AM 0400 Date of Encounter: 04/07/18 Time of Encounter: 12:30 - Discharge Diagnosis (1) NSTEMI (non-ST elevated myocardial infarction) Priority: Primary Status: Acute Assessment and Plan: 62 year old female patient with history of COPD, hypertension, high cholesterol , obesity and smoking history. Patient was loading a table into a car and she developed acute shortness of breath and broke out in profuse sweat has some epigastric discomfort going up to her chest and that she called EMS and brought to the emergency room. She was assessedwith NSTEMi 2/2 to elevated troponins and cardiology was consulted. She had a left heart cath done showing non obstructive CAD and TTE showed no severe valvular or EF abnormalities. Cardiology recommended discharge on aspirin, plavix, statin and BB on discharge. She was therefore discharged in a stable condition (2) Chest pain Priority: Secondary Status: Acute Qualifiers: Chest pain type: other chest pain Qualified Code(s): R07.89 - Other chest pain; R07.8 - Other chest pain (3) Tobacco abuse Priority: Secondary Status: Acute (4) COPD (chronic obstructive pulmonary disease) Priority: Secondary Status: Chronic Qualifiers: COPD type: unspecified COPD Qualified Code(s): J44.9 - Chronic obstructive pulmonary disease, unspecified (5) HTN (hypertension) Priority: Secondary Status: Chronic Qualifiers: Hypertension type: essential hypertension Qualified Code(s): I10 - Essential (primary) hypertension (6) Hyperlipidemia Priority: Secondary Status: Chronic Qualifiers: Hyperlipidemia type: pure hypercholesterolemia Qualified Code(s): E78.00 - Pure hypercholesterolemia, unspecified; E78.0 - Pure hypercholesterolemia (7) DVT prophylaxis Priority: Secondary Status: Acute Hospital course: Ms. Nunes is a 62 year old female Discharge discussed with: patient - Time Spent with Patient Total time spent providing and/or coordinating discharge services: - Discharge Medications Prescriptions: Aspirin 81 mg PO DAILY #60 tab.chew Atorvastatin [Lipitor] 40 mg PO HS #60 tablet Clopidogrel [Plavix] 75 mg PO DAILY #60 tablet Home Medications: Albuterol Sulfate [Proventil Hfa] 2 puff IH Q4H PRN 12/23/16 [History] Citalopram Hydrobromide [Citalopram HBr] 40 mg PO DAILY 12/23/16 [History] Lisinopril [Zestril] 40 mg PO DAILY 12/23/16 [History] Budesonide/Formoterol 80/4.5 [Symbicort 80/4.5] 2 gm IH BIDR 02/11/17 [History] Albuterol Neb [Proventil Neb] 2.5 mg IH TID 04/05/18 [History] Metoprolol [Lopressor] 25 mg PO BID 04/05/18 [History] Aspirin 81 mg PO DAILY #60 tab.chew 04/07/18 [Rx] Atorvastatin [Lipitor] 40 mg PO HS #60 tablet 04/07/18 [Rx] Clopidogrel [Plavix] 75 mg PO DAILY #60 tablet 04/07/18 [Rx] Allergies/Adverse Reactions: 3 Allergy/AdvReac Type Severity Reaction Status Date / Time Oxycodone [From Percocet] AdvReac Nausea Verified 05/03/17 18:10 Date of admission: 04/05/18 16:27 Primary care physician: Lety Chacon MD Consults: 04/06/18 09:02 Consult to Cardiac Rehabilitation-Phase1 [CONS] Routine Comment: Reason for Consult: NSTEMI Call Completed: No - Constitutional Vitals: Temp Pulse Resp BP Pulse Ox 97.6 F 71 16 171/81 93 04/07/18 08:53 04/07/18 08:53 04/07/18 08:53 04/07/18 08:53 04/07/18 08:53 - Head Head exam: Present: atraumatic, normocephalic - Eye Eye exam: Present: PERRL, conjuntiva pink, sclera anicteric Pupils: Present: PERRL - Neck Neck exam general surgery: Present: supple, trachea midline. Absent: lymphadenopathy - Respiratory Respiratory exam: Present: CTAB. Absent: accessory muscle use, rales, rhonchi, wheezes - Cardiovascular Cardiovascular exam: Present: RRR, +S1, +S2. Absent: diastolic murmur, gallop, rubs, systolic murmur - GI/Abdominal GI/Abdominal exam: Present: normal bowel sounds, soft, no peritoneal signs. Absent: distended, tenderness - Extremities Exam Extremities exam: Present: warm, radial pulses palpable and symmetrical. Absent : calf tenderness, cyanotic, pedal edema - Neurological Exam Neurological exam: Present: CN II-XII intact, oriented X3, no focal deficits. Absent: pronater drift, facial droop, speech deficit - Skin Skin exam: Present: dry, intact - Patient Status Disposition: Home, Self-Care Condition: Good - Discharge Instructions Instructions: Aspirin/Codeine (By mouth), Atorvastatin (By mouth), Clopidogrel (By mouth), Myocardial Infarction (DC) Follow Up With: Lety Chacon MD [Primary Care Provider] - 04/15/18 10:00 am (Please follow up as schedule....)
== END 2018-04-07 15:42 | disposition home or self-care (01) ==
LOC: 2ANU 11:16 → EMEROO 11:16 → 2ANU 16:59
PROVIDERS: ADMIT Internal Medicine Cardiovascular Disease; ATTEND Internal Medicine Cardiovascular Disease